=== PATIENT | male | born 1995 | race Caucasian/White ===

== ENCOUNTER 2023-09-25 20:11 | Emergency (ER) | payer SELFPAY ==
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
[2023-09-25 20:21] VITALS: BMI 23.1
[2023-09-25 21:57] VITALS: BP 138/68; PULSE 66; RESP 16; TEMP 36.1; O2SAT 97
[2023-09-25] MEDS: Ketorolac Tromethamine 60 MG/2 ML VIAL IM (22:43)
[2023-09-25 22:59] VITALS: BP 128/70; PULSE 69; RESP 16; TEMP 36.3; O2SAT 98
== END 2023-09-25 23:00 | disposition home or self-care (01) ==
PROVIDERS: Emergency Provider Emergency Medicine; PCP Internal Medicine
DX: S90.32XA Contusion of left foot, initial encounter (principal); V28.49XA Other motorcycle driver injured in noncollision transport accident in traffic accident, initial encounter; Y93.89 Activity, other specified; Y92.410 Unspecified street and highway as the place of occurrence of the external cause; Y99.9 Unspecified external cause status; M79.672 Pain in left foot
CPT/HCPCS: 73610; 73630; 96372; 99284; J1885